=== PATIENT | female | born 1980 | race Two or more races ===

== ENCOUNTER 2024-07-25 23:31 | Emergency (ER) | payer OTHER ==
[~2024-07-25] VITALS: Ht 167.6 cm; Wt 100.0 kg
[2024-07-25] MEDS: SODIUM CHLORIDE 0.9% 1,000 ML IV ONE (23:56)
[2024-07-25] MEDS: ONDANSETRON HCL 4 MG/2 ML VIAL IV ONE (23:56)
[2024-07-25 23:59] VITALS: PULSE 108; RESP 22; O2SAT 99
[2024-07-26] MEDS: MORPHINE SULFATE 4 MG/ML SYR/VIAL IV ONE
[2024-07-26 01:00] VITALS: TEMP 98.1
[2024-07-26] MEDS: PROPOFOL 10 MG/ML 20 ML IV ONE ×2 (01:22→01:45)
[2024-07-26 02:45] VITALS: BP 117/74; PULSE 92; RESP 12; O2SAT 100
== END 2024-07-26 03:36 | disposition home or self-care (01) ==
LOC: EDBD 23:31 → ER 23:31
DX: S73.005A Unspecified dislocation of left hip, initial encounter (principal); Z98.890 Other specified postprocedural states; Z91.09 Other allergy status, other than to drugs and biological substances; X58.XXXA Exposure to other specified factors, initial encounter; Y93.89 Activity, other specified; Y92.89 Other specified places as the place of occurrence of the external cause; Y99.8 Other external cause status
CPT/HCPCS: 27265; 29505; 73501; 96361; 96374; 96375; 99152; 99153; 99285; J2270; J2405; J2704; J7030